=== PATIENT | female | born 2000 | race Two or more races ===

== ENCOUNTER 2025-05-17 14:29 | Emergency (ER) | payer MEDICAID, OTHER ==
[~2025-05-17] VITALS: Ht 157.5 cm; Wt 64.9 kg
[2025-05-17] MEDS ORDERED: IOHEXOL-300 100 ML VIAL IV ONE ×2 (15:27→15:45)
[2025-05-17] MEDS ORDERED: IV NS 0.9% 250 ML IV ONE ×2 (15:27→15:46)
[2025-05-17] MEDS ORDERED: KETOROLAC TROMETHAMINE 15 MG/ML VIAL ONE (16:53)
[2025-05-17] MEDS: KETOROLAC TROMETHAMINE 15 MG/ML VIAL IV ONE (17:05)
[2025-05-17 17:06] LABS: PLATELET COUNT (AUTO) 261 K/uL (150-450); RED BLOOD CELL COUNT(AUTO) 5.34 MIL/uL (4.0-5.2); RED CELL DISTRIBUTION WIDTH 15.7 % (11.5-15.0); WHITE BLOOD COUNT (AUTO) 7.3 K/uL (4.3-11.0)
[2025-05-17 17:18] LABS: ALCOHOL, BLOOD < 3 mg/dL (0-10); CALCIUM, SERUM 9.1 mg/dL (8.5-10.1); CREATININE 0.5 mg/dL (0.6-1.3); SODIUM SERUM 139 mmol/L (136-145); UREA NITROGEN, BLOOD 11 mg/dL (7-18)
[2025-05-17 18:13] VITALS: BP 128/72; TEMP 98.3; O2SAT 97
== END 2025-05-17 18:14 | disposition home or self-care (01) ==
LOC: ER 14:44
DX: S70.01XA Contusion of right hip, initial encounter (principal); S60.211A Contusion of right wrist, initial encounter; H54.8 Legal blindness, as defined in USA; Z98.2 Presence of cerebrospinal fluid drainage device; X58.XXXA Exposure to other specified factors, initial encounter; Y93.89 Activity, other specified; Y92.89 Other specified places as the place of occurrence of the external cause; Y99.8 Other external cause status
CPT/HCPCS: 99285; 96374; 73552; 73564; 72125; 71260; 70450; 73110; 74177; 85025; 80048; 36415; 80320; J7050 ×2; Q9967 ×2; J1885; G0480